=== PATIENT | female | born 1975 | race Caucasian/White ===

== ENCOUNTER 2019-01-15 07:29 | Observation (INO) | payer BC ==
[2019-01-15] MEDS: SOD CHLORIDE 0.9% 1,000 ML IV (08:32)
[2019-01-15] MEDS ORDERED: HYDROmorphONE 1 MG/5 ML IV SYRINGE IV ×2 (12:00)
[2019-01-15] MEDS ORDERED: FENTAnyl 50 MCG/ML VIAL (12:00)
[2019-01-15] MEDS ORDERED: METOCLOPRAMIDE 10 MG INJ IV (12:00)
[2019-01-15] MEDS ORDERED: ONDANSETRON 4 MG INJ IV ×2 (12:00→22:00)
[2019-01-15] MEDS ORDERED: MEPERIDINE 25 MG INJ IV (12:00)
[2019-01-15] MEDS ORDERED: DIPHENHYDRAMINE 50 MG INJ IV (12:00)
[2019-01-15] MEDS ORDERED: ALBUTEROL 0.083% (NEB) 2.5 MG/3 ML AMP HHN (12:00)
[2019-01-15] MEDS ORDERED: FENTAnyl 50 MCG/ML VIAL IV ×3 (12:00)
[2019-01-15] MEDS: ISOSULFAN BLUE 1% 5 ML INJ SC (12:06)
[2019-01-15] MEDS ORDERED: PROPOFOL 20 ML (13:08)
[2019-01-15] MEDS ORDERED: ROCURONIUM 50 MG INJ (13:08)
[2019-01-15] MEDS ORDERED: CEFAZOLIN 1 GM INJ (13:08)
[2019-01-15] MEDS ORDERED: LIDOCAINE 100 MG SYRINGE (13:08)
[2019-01-15] MEDS ORDERED: SUCCINYLCHOLINE CHLORIDE 100 MG/5 ML SYG IV (13:08)
[2019-01-15] MEDS ORDERED: SUGAMMADEX SODIUM 200 MG/2 ML VIAL IV (13:08)
[2019-01-15] MEDS: HYDROmorphONE 1 MG/5 ML IV SYRINGE IV (13:47)
[2019-01-15] MEDS: CEFAZOLIN 2 GM/50 ML (PMX) 50 ML IVPB ×2 (13:53→22:04)
[2019-01-15] MEDS ORDERED: DIPHENHYDRAMINE 25 MG CAP PO (14:00)
[2019-01-15] MEDS ORDERED: HYDROCODONE/APAP (5/325) TAB PO (14:00)
[2019-01-15] MEDS ORDERED: HYDROmorphONE 1 MG/ML SYG SC (14:00)
[2019-01-15] MEDS: D5W-0.45 NACL + KCL 20 MEQ 1,000 ML IV (15:29)
[2019-01-15] MEDS: HYDROmorphONE 1 MG/ML SYG IV (15:50)
[2019-01-15] MEDS: ONDANSETRON 4 MG INJ IV (16:28)
[2019-01-15] MEDS ORDERED: HYDROmorphONE 1 MG/ML SYG IV (18:00)
[2019-01-15] MEDS ORDERED: PROCHLORPERAZINE 10 MG INJ IV (20:00)
[2019-01-15] MEDS: PROCHLORPERAZINE 10 MG INJ IV (20:28)
[2019-01-16] MEDS: D5W-0.45 NACL + KCL 20 MEQ 1,000 ML IV ×2 (02:48)
[2019-01-16] MEDS: ACETAMINOPHEN 325 MG TAB PO ×2 (02:52→09:49)
[2019-01-16] MEDS: CEFAZOLIN 2 GM/50 ML (PMX) 50 ML IVPB (06:34)
== END 2019-01-16 14:05 | disposition home or self-care (01) ==
LOC: SDS 07:29 → REC 13:38 → MS1 14:45
DX: C50.311 Malignant neoplasm of lower-inner quadrant of right female breast (principal); Z17.0 Estrogen receptor positive status [ER+]; I10 Essential (primary) hypertension
CPT/HCPCS: 19301; 88307; 88331